=== PATIENT | male | born 1945 | race Asian ===

== ENCOUNTER 2019-04-13 08:36 | Day surgery (SDC) | payer MEDICARE, OTHER ==
[~2019-04-13] VITALS: Ht 157.5 cm; Wt 51.0 kg
[~2019-04-13 08:36] MED LIST: AMLO5TAB9 PO; ASPI81TA39 PO; ATOR20TA86 PO; BIMA12.5OS OD; BISA-151 PO; BUME1TAB34 PO; CARV3 PO; COMB5OS OU; DOCU-342 PO; FOLI0.8T22 PO; FOLI1 PO; GABA-531 PO; INSNOV SQ; INSU100C3 SQ; LOSA50TA64 PO; OMEG1CAP6 PO; RINGERS SOLUTION,LACTATED 0 ML IV ONE; SODIUM CHLORIDE 0.9% 500 ML IV ONE
[2019-04-13] MEDS ORDERED: POVIDONE-IODINE 10% 15 ML SOLUTION UD TP ONE (08:37)
[2019-04-13] MEDS ORDERED: EPINEPHrine 1:1,000 [1 MG/ML] AMP IM ONE (08:37)
[2019-04-13] MEDS ORDERED: BUPIVACAINE HCL/PF 0.75% 10 ML VIAL INJ ONE (08:37)
[2019-04-13] MEDS ORDERED: LIDOCAINE/PF 1% 2 ML VIAL IM ONE (08:37)
[2019-04-13] MEDS ORDERED: DEXAMETHASONE SOD PHOS 4 MG/ML VIAL IVP ONE (08:37)
[2019-04-13] MEDS ORDERED: FentaNYL CITRATE-PF 100 MCG/2 ML VIAL IVP ONE (08:37)
[2019-04-13] MEDS ORDERED: HYALURONIDASE, HUMAN RECOMB. 150 UNITS/ML ID ONE (08:37)
[2019-04-13] MEDS ORDERED: PROPOFOL 1% 20 ML VIAL IVP ONE (08:37)
[2019-04-13] MEDS ORDERED: SODIUM CHLORIDE 0.9% 500 ML IV ONE (09:04)
== END 2019-04-13 15:20 | disposition home or self-care (01) ==
LOC: SURGERY 08:36
PROVIDERS: ATTEND Ophthalmology
DX: E11.39 Type 2 diabetes mellitus with other diabetic ophthalmic complication (principal); H40.1113 Primary open-angle glaucoma, right eye, severe stage; M19.90 Unspecified osteoarthritis, unspecified site; E78.00 Pure hypercholesterolemia, unspecified; I10 Essential (primary) hypertension; F32.9 Major depressive disorder, single episode, unspecified; Z86.73 Personal history of transient ischemic attack (TIA), and cerebral infarction without residual deficits; Z79.4 Long term (current) use of insulin; Z79.899 Other long term (current) drug therapy; Z79.82 Long term (current) use of aspirin
CPT/HCPCS: 66179; C1783; J0171; J0690; J1100; J2704; J3010; J3473; J3490 ×2; J7040; J7120